=== PATIENT | female | born 1965 | race Caucasian/White ===

== ENCOUNTER → 2016-10-27 | Outpatient (CLI) | payer OTHER ==
[~2016-10-27] MED LIST: DICLOFENAC; FLEXERIL PO; FLEXERIL10 MG PO; HYDROCODON-ACE1 EACH PO; LORTAB 5/500 TA1 TA1 PO; NAPROXEN PO; NO MEDICATIONS; ORUDIS75 M1 PO; PEN-VEE K PO; VOLTAREN75 MG PO
--- NOTE | ~2016-10-27 | MY29 ---
[facility] A Service of [facility] & [facility] RADIOLOGY TEXT RESULTS PATIENT: SONAM GABRIEL LOCATION: [facility] : 69 UNIT #: [id number] AGE: [address]: UMU MANCILLA SEX: F ORDER DR: [id number] [facility] [address] [place], [place] [address] [id number] O MR#: [id number] Acc #: [id number] NAME: SONAM GABRIEL : 1965 SEX: F STUDY DATE/TIME: 10/27/2016 11:29 UNIT: [facility] ROOM: STUDY DESCRIPTION: MY CAT[place] SCREENING W/ CAD BILAT Attending Physician: Umu Mancilla M.D. Ordering Physician: Staff Doctor Not On Primary Care Physician: No Primary Care Physician MEDICAL IMAGING REPORT This report is preliminary unless electronic signature is present EXAM Bilateral digital screening mammogram with CAD 10/27/2016 INDICATIONS 51-year-old female for routine screening. No reported problems no personal history of breast cancer. Family history positive in her family (degree relative not indicated). TECHNIQUE CC and MLO views of the breasts were obtained and reviewed with an FDA-approved CAD device. She reports a prior mammogram at [facility] 20 years ago but those studies have been destroyed. This will serve as her new baseline. FINDINGS Breast parenchyma is composed of heterogeneously dense tissue. This degrades sensitivity of screening mammography. The pattern is symmetric. There is no suspicious cluster of microcalcifications. Occasional faint benign calcifications noted bilaterally. In the upper outer left breast there is an obscured oval-shaped nodule measuring about 12 mm. In the upper hemisphere left breast only on the MLO view, there is a second 7 mm nodular density. Suggest further evaluation with spot compression views and a true lateral view for further assessment and localization purposes. If abnormalities persist ultrasound would be recommended for further assessment at that time. IMPRESSION 1. Nodular asymmetries in the left breast. Additional views and potentially breast ultrasound recommended for further assessment. Patients over the age of 40 are entered into a reminder system with target due date for the next mammogram. A result letter will also be sent to the patient. [facility] A Service of [facility] RADIOLOGY TEXT RESULTS PATIENT: SONAM GABRIEL LOCATION: [facility] : 69 UNIT #: [id number] AGE: [address]: UMU MANCILLA SEX: F ORDER DR: BIRADS: 0. Incomplete; Need additional imaging evaluation and/or prior mammograms for comparison. Dictated by... Sinan Jacinto M.D. THIS IS AN ELECTRONICALLY VERIFIED REPORT Sinan Jacinto M.D. at 10/28/2016 8:28 AM CARLITOS/vasile TD: 10/28/2016 01:52 JOB #: [id number] MEDICAL IMAGING REPORT Page 1 of 1 COPY
== END | disposition home or self-care (01) ==
LOC: CWCC 11:09
DX: Z12.31 Encounter for screening mammogram for malignant neoplasm of breast (principal); N64.89 Other specified disorders of breast; Z80.3 Family history of malignant neoplasm of breast
CPT/HCPCS: G0202